=== PATIENT | male | born 1960 | race Caucasian/White ===

== ENCOUNTER → 2020-10-20 12:17 | Outpatient (BNVA) | payer BC, SELFPAY | PROVIDERS: Visit Provider Nurse Practitioner Family | DX: Z85.46 Personal history of malignant neoplasm of prostate (principal); I10 Essential (primary) hypertension; Z68.41 Body mass index [BMI] 40.0-44.9, adult; E03.9 Hypothyroidism, unspecified; E11.9 Type 2 diabetes mellitus without complications | CPT/HCPCS: 80053; 80061; 82043; 82306; 83036; 84153; 84439; 84443; 85025 ==

== ENCOUNTER 2020-11-08 12:53 | Outpatient (CLI) | payer BC, SELFPAY ==
[2020-11-08] MEDS: leuprolide 22.5 mg Kit IM (15:30)
--- NOTE | 2020-11-08 20:03 | ONC CON_ITS ---
Dr. Thompson New Patient Note Patient: Otto Zuleta Unit #: [id number]: 1960 Dicatated By: Rubin Thompson M.D.Date of Visit: Nov 08, 2020 Onc MED New Patient/Consult Referring Physician: Marci Arauz Chief Complaint: Prostate cancer. 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 He had presented with an elevated PSA level, maximum in the range of 9 ng/mL. His initial biopsy reportedly showed a Guillermo score 7 adenocarcinoma. He underwent robotic assisted laparoscopic prostatectomy on 02/02/2019. Pathology showed acinar adenocarcinoma, Chester score 4+5=9, which was extensively involving the prostate. There was perineural invasion identified but there was no extraprostatic extension and the margins were uninvolved. There were no lymph nodes included in the surgical specimen. Pathologic staging was pT2, pNx, but he was clinically N0 and thus stage IIIC (pT2, cN0, M0). By June 2019 his PSA had increased to 0.51 ng/mL and he was recommended to undergo ADT and radiation. His radiation was completed on 09/16/2019 to a total dose of 6840 cGy administered in 38 fractions. He then began androgen deprivation therapy with bicalutamide 50 mg daily together with Eligard 22.5 mg. His initial dose of Eligard was administered on 10/14/2019 and then continued every 3 months. As of 07/20/2020 his PSA level was less than 0.01 ng/mL. Subsequent to that treatment he had changed insurance and he was then required to change his care to [facility] providers. He has established primary care at the [facility]. His laboratory studies there on 10/20/2020 included a PSA level which remained adequately suppressed at 0.006 ng/mL. He is seen here today for further management of the prostate cancer. He has been feeling pretty good generally. He says he does not have a ton of energy, but he is doing light work. ECOG score is 1. He has good appetite. He recently has had some weight gain. He has not had fever. He sometimes feels a little warm. He does not have actual hot flashes and he has no night sweating. He has some exertional dyspnea, which has been going on for several years. He has cough associated with sinus drainage. He does not complain of chest pain. He has had intermittent loose stools since his radiation. He has no other GI complaints. Bladder function is pretty good, though he has not had complete control since the surgery and radiation. He recently developed some pain in his left little finger and he has occasional low back pain. He has no other joint or bone pain. He does not complain of headache or dizziness. He sometimes has numbness in his hands and/or feet. Past Medical History: His medical history includes anxiety, hypertension, hypothyroidism, nephrolithiasis, prostate cancer, and type II diabetes. Past Surgical History: He underwent robotic assisted laparoscopic prostatectomy on 02/02/2019. His other surgical/procedural history includes lithotripsy and Mohs surgery. Medications: Atenolol (50 mg) Tablet Oral daily, Bicalutamide (50 mg) Tablet Oral daily, Eligard (7.5 mg) Subcutaneous Take as Directed, Hyzaar (100-25 mg) Tablet Oral daily, Levoxyl (25 mcg) Tablet Oral daily, Potassium Citrate ER (10 meq ) Tablet, controlled release Oral daily Allergies: No Known Allergies. Social History: Mr. Zuleta is . He is retired. He is a non-smoker. He has just very occasional alcohol use. Family History: Father at 83 of old age . Mother with pulmonary fibrosis at age 81. She also had breast cancer. A brother has diabetes. Review Of Symptoms: Constitutional - He generally feels good. He does have some fatigue. He is able to do some light work in and around the house. His appetite is good and his weight is stable. No fever, night sweats, or hot flashes. ECOG score is 1, Eyes - No change in vision, ENMT - No hearing loss or tinnitus. He has occasional sinus congestion/drainage. No mouth sores. No sore throat or difficulty swallowing, Hematologic/Lymphatic - No abnormal bruising or bleeding, Respiratory - He has shortness of breath, more noticeable with exertion or when lying down. He has cough occasionally in association with post nasal drip. No pleuritic pain or hemoptysis, Cardiovascular - No angina pain. No palpitations, Gastrointestinal - No nausea or vomiting. No heartburn or acid reflux. He has intermittent loose stools and constipation. No blood in the stool or black stools, Genitourinary (M) - No dysuria or hematuria. No urinary frequency. No urgency or incontinence. He has stress incontinence, Musculoskeletal - He has some mild joint pain in his left pinky finger, which is new. He has occasional lower back pain, Integumentary - No skin eruption, Neurologic - No headache or dizziness. He has some neuropathy in his legs and feet. No other focal neurologic symptoms, Psychiatric - He has occasional episodes of anxiety. No depression. No insomnia. Vital Signs: Performed on Nov 08, 2020 13:51: 3, 0, 0.00 (LOW), 96 %, 58 /min (LOW), 18 /min, 129/75 mm(hg), 98.1 F (LOW), and 303.4 lbs (HIGH). Physical Examination: Constitutional - He looks good generally, Eyes - Sclerae nonicteric. Conjunctivae clear, ENMT - No lesions noted in the oral cavity, Neck - No mass or thyromegaly, Hematologic/Lymphatic - No cervical, clavicular, or axillary adenopathy, Respiratory - Lungs are clear with good air movement bilaterally, Cardiovascular - Heart rhythm is regular. There is no murmur, gallop, or rub noted, Abdomen - Moderately distended. Liver and spleen are not enlarged. There is no abdominal mass or ascites noted and there is no inguinal adenopathy, Extremities - No edema. Pedal pulses are palpable bilaterally, Integumentary - No rashes. No suspicious skin lesions noted, Neurologic - No focal neurologic deficits noted. Lab/Imaging: His laboratory studies from 10/20/2020 included CBC showing hemoglobin 13.3 g, white blood cell count 8300, and platelet count 395,000. Comprehensive metabolic profile showed normal renal function with BUN 14 and creatinine 0.8 mg/dL. The bilirubin and liver enzymes were normal. The TSH was normal at 3.01 ???IU/mL. Hemoglobin A1c was 7.3%. The PSA level was 0.006 ng/mL. Problem List: 1. Acinar adenocarcinoma of the prostate, Guillermo score 4+5 = 9. He underwent robotic assisted laparoscopic prostatectomy on 02/02/2019. His disease was stage IIIC (pT2, cN0, M0). He had biochemical recurrence with PSA 0.51 ng/mL in June 2019. 2. Hypertension. 3. Type 2 diabetes. 4. Hypothyroidism. 5. History of nephrolithiasis. Problems Addressed with this Encounter and Plan: Patient with acinar adenocarcinoma of the prostate, Chester score 4+5 = 9. He underwent robotic assisted laparoscopic prostatectomy on 02/02/2019. There was perineural invasion, but no extraprostatic extension, and the margins were free. Pathologic staging was pT2, Nx, as there were no lymph nodes in the surgical specimen. He was clinically N0, thus stage IIIC (pT2, cN0, M0). He had evidence of biochemical recurrence with PSA 0.51 ng/mL in June 2019. He underwent radiation to the pelvis/prostate bed, completed on 09/16/2019 to a total dose of 6840 cGy administered in 38 fractions. He then began androgen deprivation therapy with bicalutamide 50 mg daily in combination with Eligard 22.5 mg administered by intramuscular injection every 3 months. His most recent Eligard injection was given on 07/20/2020. His PSA level on 10/20/2020 remained adequately suppressed at 0.006 ng/mL. Thus far he has tolerated the androgen deprivation therapy with minimal side effects. He has completed 1 year of a planned 2-year course of treatment. He will continue his androgen deprivation therapy, but due to insurance requirements it will be changed to Depo-Lupron at the same dosage. He continues bicalutamide 50 mg daily. He will return for follow-up in 3 months. Signed By: Rubin Thompson M.D. <<Signature on File>>
== END 2020-11-08 12:54 | disposition home or self-care (01) ==
LOC: ONCMED 12:57
PROVIDERS: PCP Nurse Practitioner Family; Visit Provider Internal Medicine Medical Oncology
DX: C61 Malignant neoplasm of prostate (principal); Z92.3 Personal history of irradiation; Z90.79 Acquired absence of other genital organ(s); Z79.818 Long term (current) use of other agents affecting estrogen receptors and estrogen levels
CPT/HCPCS: 96372; 96402; 99205; J9217

== ENCOUNTER → 2021-02-02 08:31 | Outpatient (BNVA) | payer BC, SELFPAY | PROVIDERS: PCP Nurse Practitioner Family; Visit Provider Internal Medicine Medical Oncology | DX: C61 Malignant neoplasm of prostate (principal); E11.9 Type 2 diabetes mellitus without complications | CPT/HCPCS: 80053; 83036; 84153; 84403; 85025 ==

== ENCOUNTER 2021-02-06 14:28 | Outpatient (CLI) | payer BC, SELFPAY ==
[2021-02-06] MEDS: leuprolide 22.5 mg Kit IM (15:45)
--- NOTE | 2021-02-10 11:25 | ONC FU_ITS ---
Dr. Thompson Patient Follow-Up Note Patient: Otto Zuleta Unit #: [id number]: 1960 Dicatated By: Rubin Thompson M.D.Date of Visit:Feb 06, 2021 Onc Med Follow-up/Prog Note Chief Complaint: Prostate cancer. History of Present Illness: This is a 60-year-old man with Guillermo score 9 adenocarcinoma of the prostate, stage IIIC (pT2, cN0, M0) at initial diagnosis in 2018. He had presented with an elevated PSA level, maximum in the range of 9 ng/mL. His initial biopsy reportedly showed a Hamden score 7 adenocarcinoma. He underwent robotic assisted laparoscopic prostatectomy on 02/02/2019. Pathology showed acinar adenocarcinoma, Guillermo score 4+5=9, which was extensively involving the prostate. There was perineural invasion identified but there was no extraprostatic extension and the margins were uninvolved. There were no lymph nodes included in the surgical specimen. Pathologic staging was pT2, pNx, but he was clinically N0 and thus stage IIIC (pT2, cN0, M0). By June 2019 his PSA had increased to 0.51 ng/mL and he was recommended to undergo ADT and radiation. His radiation was completed on 09/16/2019 to a total dose of 6840 cGy administered in 38 fractions. He then began a planned 2-year course of androgen deprivation therapy with bicalutamide 50 mg daily together with Eligard 22.5 mg. His initial dose of Eligard was administered on 10/14/2019 and then continued every 3 months. As of 07/20/2020 his PSA level was less than 0.01 ng/mL. Subsequent to that treatment he had changed insurance and he was then required to change his care to [place]-based providers. He has established primary care at the [facility]. His laboratory studies there on 10/20/2020 included a PSA level which remained adequately suppressed at 0.006 ng/mL. He was seen here initially on 11/08/2020 for continuation of his androgen deprivation therapy. His other medical illnesses include hypertension, type 2 diabetes, and hypothyroidism. He has a history of nephrolithiasis. He is a non-smoker. INTERIM HISTORY: He has been feeling pretty good generally, though he does complain of fatigue and lack of stamina. He has limited physical activity, but he is able to do light work. ECOG score is 1. His appetite is pretty good. His weight is down a little associated with dietary changes. He has not had fever or night sweats. He does have very mild hot flashes. He has some allergy related sinus drainage. He has some shortness of breath with activity, particularly with the hot weather. He does not complain of cough and he has not been having chest pain. He has no GI/ complaints other than some intermittent diarrhea since the radiation. He has no complaints. He has some joint pain, mainly just in the left little finger. He does not complain of headache. He has some mild orthostatic lightheadedness. He sometimes has numbness in his hands and feet. Medications: Atenolol (50 mg) Tablet Oral daily, Bicalutamide (50 mg) Tablet Oral daily, Eligard (7.5 mg) Subcutaneous Take as Directed, Hyzaar (100-25 mg) Tablet Oral daily, Levoxyl (25 mcg) Tablet Oral daily, Potassium Citrate ER (10 meq ) Tablet, controlled release Oral daily Allergies: No Known Allergies. Vital Signs: Weight is 291 pounds. Blood pressure 129/70, pulse 62, respirations 18, temp 97.5 degrees, oxygen saturation 96%. Physical Examination: Constitutional - He looks good generally, Eyes - Sclerae nonicteric. Conjunctivae clear, ENMT - No lesions noted in the oral cavity, Hematologic/Lymphatic - No cervical, clavicular, or axillary adenopathy, Respiratory - Lungs are clear with good air movement bilaterally, Cardiovascular - Heart rhythm is regular. There is no murmur, gallop, or rub noted, Abdomen - Mildly distended. Liver and spleen are not enlarged. There is no abdominal mass or ascites noted and there is no inguinal adenopathy, Extremities - Slight edema, Neurologic - No focal neurologic deficits noted. Lab/Imaging: Test performed on Feb 02, 2021 08:31 Testosterone 47.0 ng/dL Glucose 102 mg/dL BUN 18 mg/dL Creatinine 0.7 mg/dL Sodium 138 mmol/L Potassium 4.6 mmol/L Chloride 98 mmol/L CO2 27 mmol/L Calcium 8.9 mg/dL Protein, Total 6.4 g/dL Albumin 4.0 g/dL Globulin 2.4 g/dL Bilirubin, Total 0.6 mg/dL Alkaline Phosphatase 86 IU/L AST (SGOT) 23 IU/L ALT (SGPT) 26 IU/L Hemoglobin A1C 6.3 % WBC 8.1 10^9/L RBC 4.39 10^12/L HGB 12.5 g/dL HCT 38.4 % MCV 87.5 fl MCH 28.5 pg MCHC 32.6 g/dL RDW 14.6 % Platelet Count 338 10^9/L MPV 7.8 fL Neutrophils (Gran) 6.3 10^9/L Lymphocytes 1.2 10^9/L Monocytes 0.6 10^9/L Manual Lymphocytes 15.3 % Manual Monocytes 6.9 % PSA 0.006 ng/mL Problem List: 1. Acinar adenocarcinoma of the prostate, Hamden score 4+5 = 9. He underwent robotic assisted laparoscopic prostatectomy on 02/02/2019. His disease was stage IIIC (pT2, cN0, M0). He had biochemical recurrence with PSA 0.51 ng/mL in June 2019. 2. Hypertension. 3. Type 2 diabetes. 4. Hypothyroidism. 5. History of nephrolithiasis. Problems Addressed with this Encounter and Plan: Patient with acinar adenocarcinoma of the prostate, Guillermo score 4+5 = 9. He underwent robotic assisted laparoscopic prostatectomy on 02/02/2019. There was perineural invasion, but no extraprostatic extension, and the margins were free. Pathologic staging was pT2, Nx, as there were no lymph nodes in the surgical specimen. He was clinically N0, thus stage IIIC (pT2, cN0, M0). He had evidence of biochemical recurrence with PSA 0.51 ng/mL in June 2019. He underwent radiation to the pelvis/prostate bed, completed on 09/16/2019 to a total dose of 6840 cGy administered in 38 fractions. He then began androgen deprivation therapy with bicalutamide 50 mg daily in combination with Eligard 22.5 mg administered by intramuscular injection every 3 months. His PSA level has remained adequately suppressed, currently at 0.006 ng/mL. He does report having significant fatigue and lack of stamina, but overall he continues to tolerate the androgen deprivation therapy with acceptable side effects. He is now in his 2nd year of treatment. He will continue his androgen deprivation therapy with Depo-Lupron 22.5 mg by intramuscular injection and he continues bicalutamide 50 mg daily. He will return for follow-up in 3 months. Signed By: Rubin Thompson M.D. <<Signature on File>>
== END 2021-02-06 14:29 | disposition home or self-care (01) ==
PROVIDERS: PCP Nurse Practitioner Family; Visit Provider Internal Medicine Medical Oncology
DX: C61 Malignant neoplasm of prostate (principal); R97.20 Elevated prostate specific antigen [PSA]; I10 Essential (primary) hypertension; E11.9 Type 2 diabetes mellitus without complications; E03.9 Hypothyroidism, unspecified; N20.0 Calculus of kidney; Z79.899 Other long term (current) drug therapy; Z79.818 Long term (current) use of other agents affecting estrogen receptors and estrogen levels
CPT/HCPCS: 96402; 99214; J9217

== ENCOUNTER → 2021-05-08 09:33 | Outpatient (BNVA) | payer BC, SELFPAY | PROVIDERS: PCP Nurse Practitioner Family; Visit Provider Nurse Practitioner Family | DX: E11.9 Type 2 diabetes mellitus without complications (principal); C61 Malignant neoplasm of prostate; I10 Essential (primary) hypertension; F33.0 Major depressive disorder, recurrent, mild; E03.9 Hypothyroidism, unspecified; Z85.46 Personal history of malignant neoplasm of prostate; Z68.41 Body mass index [BMI] 40.0-44.9, adult | CPT/HCPCS: 80053; 82043; 83036; 84153; 84403; 85025 ==

== ENCOUNTER 2021-05-10 16:13 | Outpatient (CLI) | payer BC, SELFPAY ==
[2021-05-10] MEDS: leuprolide 22.5 mg Kit IM (16:52)
--- NOTE | 2021-05-13 14:09 | ONC FU_ITS ---
Dr. Thompson Patient Follow-Up Note Patient: Otto Zuleta Unit #: [id number]: 1960 Dicatated By: Rubin Thompson M.D.Date of Visit:May 10, 2021 Onc Med Follow-up/Prog Note Chief Complaint: Prostate cancer. History of Present Illness: This is a 60-year-old man with Guillermo score 9 adenocarcinoma of the prostate, stage IIIC (pT2, cN0, M0) at initial diagnosis in 2018. He had presented with an elevated PSA level, maximum in the range of 9 ng/mL. His initial biopsy reportedly showed a Valliant score 7 adenocarcinoma. He underwent robotic assisted laparoscopic prostatectomy on 02/02/2019. Pathology showed acinar adenocarcinoma, Guillermo score 4+5=9, which was extensively involving the prostate. There was perineural invasion identified but there was no extraprostatic extension and the margins were uninvolved. There were no lymph nodes included in the surgical specimen. Pathologic staging was pT2, pNx, but he was clinically N0 and thus stage IIIC (pT2, cN0, M0). By June 2019 his PSA had increased to 0.51 ng/mL and he was recommended to undergo ADT and radiation. His radiation was completed on 09/16/2019 to a total dose of 6840 cGy administered in 38 fractions. He then began a planned 2-year course of androgen deprivation therapy with bicalutamide 50 mg daily together with Eligard 22.5 mg. His initial dose of Eligard was administered on 10/14/2019 and then continued every 3 months. As of 07/20/2020 his PSA level was less than 0.01 ng/mL. Subsequent to that treatment he had changed insurance and he was then required to change his care to [place]-based providers. He established primary care at the [facility]. His laboratory studies there on 10/20/2020 included a PSA level which remained adequately suppressed at 0.006 ng/mL. He was seen here initially on 11/08/2020, and he continued his androgen deprivation therapy with Eligard 22.5 mg by intramuscular injection every 3 months together with bicalutamide 50 mg daily. His other medical illnesses include hypertension, type 2 diabetes, and hypothyroidism. He has a history of nephrolithiasis. He is a non-smoker. INTERIM HISTORY: He has seen for a scheduled follow-up visit. He says he is feeling about the same. He has some fatigue, which has been an ongoing problem for years. He says he is trying to be more active. His ECOG score is 1. He has good appetite. He has not had fever or night sweats. He does have some hot flashes, but not many. He has no shortness of breath, cough, or chest pain. He occasionally has a little heartburn. He reports having 2 or 3 days of irritable bowel syndrome about every 2 weeks or so. He has no complaints. He has no significant joint or bone pain. He does not complain of headache or dizziness. He has no focal neurologic symptoms. Medications: Atenolol (50 mg) Tablet Oral daily, Bicalutamide (50 mg) Tablet Oral daily, Eligard (7.5 mg) Subcutaneous Take as Directed, Hyzaar (100-25 mg) Tablet Oral daily, Levoxyl (25 mcg) Tablet Oral daily, Potassium Citrate ER (10 meq ) Tablet, controlled release Oral daily Allergies: No Known Allergies. Vital Signs: Performed on May 10, 2021 16:28 Weight - 290.6 lbs (LOW) BSA - 0.00 sq.m BMI - 0.00 Temperature - 98.1 F (LOW) Pulse - 64 /min Respiration - 18 /min BP - 127/77 mm(hg) O2 Sat - 95 % (LOW) Pain - 0 Fatigue - 6 Physical Examination: Constitutional - He looks pretty good generally, Eyes - Sclerae nonicteric. Conjunctivae clear, ENMT - No lesions noted in the oral cavity, Hematologic/Lymphatic - No cervical, clavicular, or axillary adenopathy, Respiratory - Lungs are clear with good air movement bilaterally, Cardiovascular - Heart rhythm is regular. There is no murmur, gallop, or rub noted, Abdomen - Mildly distended. Liver and spleen are not enlarged. There is no abdominal mass or ascites noted and there is no inguinal adenopathy, Extremities - Mild edema, Neurologic - No focal neurologic deficits noted. Lab/Imaging: CBC shows hemoglobin 13.1 g, white blood cell count 9000, and platelet count 369,000. Comprehensive metabolic profile is unremarkable. The PSA level is stable at 0.006 ng/mL. Problem List: 1. Acinar adenocarcinoma of the prostate, Guillermo score 4+5 = 9. He underwent robotic assisted laparoscopic prostatectomy on 02/02/2019. His disease was stage IIIC (pT2, cN0, M0). He had biochemical recurrence with PSA 0.51 ng/mL in June 2019. 2. Hypertension. 3. Type 2 diabetes. 4. Hypothyroidism. 5. History of nephrolithiasis. Problems Addressed with this Encounter and Plan: Patient with acinar adenocarcinoma of the prostate, Valliant score 4+5 = 9. He underwent robotic assisted laparoscopic prostatectomy on 02/02/2019. There was perineural invasion, but no extraprostatic extension, and the margins were free. Pathologic staging was pT2, Nx, as there were no lymph nodes in the surgical specimen. He was clinically N0, thus stage IIIC (pT2, cN0, M0). He had evidence of biochemical recurrence with PSA 0.51 ng/mL in June 2019. He underwent radiation to the pelvis/prostate bed, completed on 09/16/2019 to a total dose of 6840 cGy administered in 38 fractions. He then began androgen deprivation therapy with bicalutamide 50 mg daily in combination with Eligard 22.5 mg administered by intramuscular injection every 3 months. His PSA level has remained adequately suppressed and stable at 0.006 ng/mL. During follow-up he has had ongoing complaints of fatigue, but overall he has been tolerating the androgen deprivation therapy with acceptable side effects . He is in his 2nd year of treatment. He will continue his androgen deprivation therapy with Depo-Lupron 22.5 mg by intramuscular injection and he continues bicalutamide 50 mg daily. He will return for follow-up in 3 months. Signed By: Rubin Thompson M.D. <<Signature on File>>
== END 2021-05-10 16:14 | disposition home or self-care (01) ==
PROVIDERS: PCP Nurse Practitioner Family; Visit Provider Internal Medicine Medical Oncology
DX: C61 Malignant neoplasm of prostate (principal); R97.20 Elevated prostate specific antigen [PSA]; I10 Essential (primary) hypertension; E11.9 Type 2 diabetes mellitus without complications; E03.9 Hypothyroidism, unspecified; Z87.442 Personal history of urinary calculi; Z79.890 Hormone replacement therapy
CPT/HCPCS: 96402; 99215; J9217

== ENCOUNTER → 2021-08-03 14:07 | Outpatient (BNVA) | payer BC, SELFPAY | PROVIDERS: PCP Nurse Practitioner Family; Visit Provider Internal Medicine Medical Oncology | DX: E11.9 Type 2 diabetes mellitus without complications (principal); Z85.46 Personal history of malignant neoplasm of prostate | CPT/HCPCS: 80053; 83036; 84153; 84403; 85025 ==

== ENCOUNTER 2021-08-08 14:31 | Outpatient (CLI) | payer BC, SELFPAY ==
[2021-08-08] MEDS: leuprolide 22.5 mg Kit IM (15:22)
--- NOTE | 2021-08-09 07:11 | ONC FU_ITS ---
Dr. Thompson Patient Follow-Up Note Patient: Otto Zuleta Unit #: [id number]: 1960 Dicatated By: Rubin Thompson M.D.Date of Visit:Aug 08, 2021 Onc Med Follow-up/Prog Note Chief Complaint: Prostate cancer. 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 He had presented with an elevated PSA level, maximum in the range of 9 ng/mL. His initial biopsy reportedly showed a [place] score 7 adenocarcinoma. He underwent robotic assisted laparoscopic prostatectomy on 02/02/2019. Pathology showed acinar adenocarcinoma, Guillermo score 4+5=9, which was extensively involving the prostate. There was perineural invasion identified but there was no extraprostatic extension and the margins were uninvolved. There were no lymph nodes included in the surgical specimen. Pathologic staging was pT2, pNx, but he was clinically N0 and thus stage IIIC (pT2, cN0, M0). By June 2019 his PSA had increased to 0.51 ng/mL and he was recommended to undergo ADT and radiation. His radiation was completed on 09/16/2019 to a total dose of 6840 cGy administered in 38 fractions. He then began a planned 2-year course of androgen deprivation therapy with bicalutamide 50 mg daily together with Eligard 22.5 mg. His initial dose of Eligard was administered on 10/14/2019 and then continued every 3 months. As of 07/20/2020 his PSA level was less than 0.01 ng/mL. Subsequent to that treatment he had changed insurance and he was then required to change his care to [place]-based providers. He established primary care at the [facility]. His laboratory studies there on 10/20/2020 included a PSA level which remained adequately suppressed at 0.006 ng/mL. He was seen here initially on 11/08/2020, and he continued his androgen deprivation therapy with Eligard 22.5 mg by intramuscular injection every 3 months together with bicalutamide 50 mg daily. His other medical illnesses include hypertension, type 2 diabetes, and hypothyroidism. He has a history of nephrolithiasis. He is a non-smoker. INTERIM HISTORY: He has seen for a scheduled follow-up visit. He has been feeling pretty good generally. His energy is about the same. ECOG score is 1. He has good appetite. His blood sugars recently have been under better control, as his Metformin dosage was increased to twice daily. He has not had fever or night sweats. He has had only a couple of hot flashes. He has not had sore mouth or throat. He does not complain of cough. His breathing is pretty good. He has not had any chest pain. He has no GI/ complaints other than his bowels tend to be a little iffy , and he does have occasional diarrhea. He has been having a little more joint pain, but it is still tolerable. He occasionally has a slight headache. He does not complain of dizziness. He has a little bit of numbness in his hands. Medications: Atenolol (50 mg) Tablet Oral daily, Bicalutamide (50 mg) Tablet Oral daily, Eligard (7.5 mg) Subcutaneous Take as Directed, Hyzaar (100-25 mg) Tablet Oral daily, Levoxyl (25 mcg) Tablet Oral daily, metFORMIN HCl 1 Tablet (of 1000 mg) Oral b.i.d., Potassium Citrate ER (10 meq ) Tablet, controlled release Oral daily Allergies: No Known Allergies. Vital Signs: Performed on Aug 08, 2021 15:09 Height - 70 in BSA - 0.00 sq.m BMI - 0.00 Performed on Aug 08, 2021 15:07 Weight - 293.8 lbs (HIGH) BSA - sq.m BMI - 0.00 (LOW) Temperature - 97.5 F (LOW) Pulse - 68 /min Respiration - 18 /min BP - 133/78 mm(hg) O2 Sat - 94 % (LOW) Pain - 0 Fatigue - 8 Physical Examination: Constitutional - He looks pretty good generally, Eyes - Sclerae nonicteric. Conjunctivae clear, ENMT - No lesions noted in the oral cavity, Hematologic/Lymphatic - No cervical, clavicular, or axillary adenopathy, Respiratory - Lungs are clear with good air movement bilaterally, Cardiovascular - Heart rhythm is regular. There is no murmur, gallop, or rub noted, Abdomen - Mildly distended. Liver and spleen are not enlarged. There is no abdominal mass or ascites noted and there is no inguinal adenopathy, Extremities - No edema, Neurologic - No focal neurologic deficits noted. Lab/Imaging: CBC shows hemoglobin 13.5 g, white blood cell count 8300, and platelet count 387,000. Comprehensive metabolic profile shows normal renal function with BUN 18 and creatinine 0.8 mg/dL. Bilirubin and liver enzymes are normal. PSA level is <0.014 ng/mL. The total testosterone is stable in castrate range at 41.8 ng/dL. Problem List: 1. Acinar adenocarcinoma of the prostate, [place] score 4+5 = 9. He underwent robotic assisted laparoscopic prostatectomy on 02/02/2019. His disease was stage IIIC (pT2, cN0, M0). He had biochemical recurrence with PSA 0.51 ng/mL in June 2019. 2. Hypertension. 3. Type 2 diabetes. 4. Hypothyroidism. 5. History of nephrolithiasis. Problems Addressed with this Encounter and Plan: Patient with acinar adenocarcinoma of the prostate, Guillermo score 4+5 = 9. He underwent robotic assisted laparoscopic prostatectomy on 02/02/2019. There was perineural invasion, but no extraprostatic extension, and the margins were free. Pathologic staging was pT2, Nx, as there were no lymph nodes in the surgical specimen. He was clinically N0, thus stage IIIC (pT2, cN0, M0). He had evidence of biochemical recurrence with PSA 0.51 ng/mL in June 2019. He underwent radiation to the pelvis/prostate bed, completed on 09/16/2019 to a total dose of 6840 cGy administered in 38 fractions. He then began androgen deprivation therapy with bicalutamide 50 mg daily in combination with Eligard 22.5 mg administered by intramuscular injection every 3 months. His PSA level has remained adequately suppressed and stable at 0.006 ng/mL. During follow-up he has had some fatigue, but overall he has been tolerating the androgen deprivation therapy very well, and his PSA level has remained suppressed. He is now completing his 2nd year of treatment. As such, he receives his final Depo-Lupron injection today. He will continue bicalutamide 50 mg daily. I will see him for a follow-up visit in 3 months. Signed By: Rubin Thompson M.D. <<Signature on File>>
== END 2021-08-08 14:32 | disposition home or self-care (01) ==
PROVIDERS: PCP Nurse Practitioner Family; Visit Provider Internal Medicine Medical Oncology
DX: C61 Malignant neoplasm of prostate (principal); Z90.79 Acquired absence of other genital organ(s); I10 Essential (primary) hypertension; Z79.818 Long term (current) use of other agents affecting estrogen receptors and estrogen levels; E11.9 Type 2 diabetes mellitus without complications; E03.9 Hypothyroidism, unspecified; Z87.442 Personal history of urinary calculi
CPT/HCPCS: 96372; 96402; 99215; J9217

== ENCOUNTER → 2021-11-10 08:42 | Outpatient (BNVA) | payer OTHER, SELFPAY | PROVIDERS: PCP Nurse Practitioner Family; Visit Provider Internal Medicine Medical Oncology | DX: C61 Malignant neoplasm of prostate (principal) | CPT/HCPCS: 80053; 83036; 84153; 85025 ==

== ENCOUNTER 2021-11-13 13:26 | Outpatient (CLI) | payer OTHER, SELFPAY ==
[2021-11-13 14:55] LABS: Alanine Aminotransferase 27 U/L (0-41); Albumin Level 4.3 g/dL (3.5-5.2); Alkaline Phosphatase 87 IU/L (40-130); Aspartate Amino Transferase 28 U/L (0-40); Blood Urea Nitrogen 17 mg/dL (8-23); Calcium 10.5 mg/dL (8.5-10.5); Carbon Dioxide 28 mmol/L (22-29); Chloride 96 mmol/L (98-107); Globulin 3.1 g/dL (1.3-4.6); Glomerular Filtration Rate 85.5 mL/min (90-130); Glucose 115 mg/dL (65-115); Osmolality Calculated 286 mOsm/kg (285-295); Sodium 137 mmol/L (136-145); Testosterone Total 35.6 ng/dL (193-740); Total Bilirubin 0.6 mg/dL (0.15-1.2); Total Protein 7.4 g/dL (6.6-8.7)
[2021-11-13 14:58] LABS: Prostate Specific Antigen < 0.014 ng/mL (0-4)
[2021-11-13 14:59] LABS: Anion Gap 16.9 (5-19); Potassium 3.9 mmol/L (3.5-5.1)
--- NOTE | 2021-11-21 21:15 | ONC FU_ITS ---
[facility] Progress Note Patient: Otto Zuleta Unit #: [id number]: 1960 Dicatated By: India De La Rosa N.P.Date of Visit:Nov 13, 2021 Onc MED Follow-up/Prog Note Chief Complaint: Prostate cancer. History of Present Illness: This is a 61 year-old man with Guillermo score 9 adenocarcinoma of the prostate, stage IIIC (pT2, cN0, M0) at initial diagnosis in 2018. He had presented with an elevated PSA level, maximum in the range of 9 ng/mL. His initial biopsy reportedly showed a [place] score 7 adenocarcinoma. He underwent robotic assisted laparoscopic prostatectomy on 02/02/2019. Pathology showed acinar adenocarcinoma, Guillermo score 4+5=9, which was extensively involving the prostate. There was perineural invasion identified but there was no extraprostatic extension and the margins were uninvolved. There were no lymph nodes included in the surgical specimen. Pathologic staging was pT2, pNx, but he was clinically N0 and thus stage IIIC (pT2, cN0, M0). By June 2019 his PSA had increased to 0.51 ng/mL and he was recommended to undergo ADT and radiation. His radiation was completed on 09/16/2019 to a total dose of 6840 cGy administered in 38 fractions. He then began a planned 2-year course of androgen deprivation therapy with bicalutamide 50 mg daily together with Eligard 22.5 mg. His initial dose of Eligard was administered on 10/14/2019 and then continued every 3 months. As of 07/20/2020 his PSA level was less than 0.01 ng/mL. Subsequent to that treatment he had changed insurance and he was then required to change his care to [place]-based providers. He established primary care at [facility]. His laboratory studies there on 10/20/2020 included a PSA level which remained adequately suppressed at 0.006 ng/mL. He was seen here initially on 11/08/2020, and he continued his androgen deprivation therapy with Eligard 22.5 mg by intramuscular injection every 3 months together with bicalutamide 50 mg daily. His other medical illnesses include hypertension, type 2 diabetes, and hypothyroidism. He has a history of nephrolithiasis. He is a non-smoker. INTERIM HISTORY: Patient presents today for follow-up visit. He continues to have fatigue but is able to carry out activities. His ECOG is 1. His appetite is good. No fever, chills, night sweats. He denies sinus drainage or mouth sores. No shortness of breath, cough, chest pain. No GI or problems. No joint pain or muscle weakness. He denies headaches or dizziness. Review Of Symptoms: see above Past Medical History: Anxiety Hypertension Hypothyroidism Nephrolithiasis Type II diabetes Past Surgical History: Lithotripsy Mohs surgery Robotic assisted laparoscopic prostatectomy in 2019 Allergies: No Known Allergies. Medications: Atenolol (50 mg) Tablet Oral daily Bicalutamide (50 mg) Tablet Oral daily Hyzaar (100-25 mg) Tablet Oral daily Levoxyl (25 mcg) Tablet Oral daily metFORMIN HCl 1 Tablet (of 1000 mg) Oral b.i.d. Potassium Citrate ER (10 meq ) Tablet, controlled release Oral daily Family History: Mr. Zuleta's mother is : breast cancer, and Pulmonary Fibrosis. Father at 83 of old age . Mother with pulmonary fibrosis at age 81. She also had breast cancer. A brother has diabetes. Social History: Mr. Zuleta is . Mr. Zuleta has never smoked. Mr. Zuleta reports contact with the following hazardous materials: asbestos. He is a non-smoker. Has just very occasional alcohol use. Physical Examination: Performed on Nov 13, 2021 14:12: Height - 70.00 in, Weight - 289.6 lbs (LOW), BSA - 2.44 sq.m, BMI - 41.55 (HIGH), Temperature - 98.2 F (LOW), Pulse - 67 /min, Respiration - 16 /min, BP - 119/74 mm(hg), O2 Sat - 95 % (LOW), Pain - 0, and Fatigue - 7. Performance Status: 1 - No physically strenuous activity, but ambulatory and able to carry out light or sedentary work (e.g. office work, light house work). (ECOG) Constitutional Alert, cooperative, oriented. Mood and affect appropriate. Appears close to chronological age. Well nourished. Well developed. Head Normocephalic; no scars. Respiratory Lungs are clear to auscultation without rhonchi or wheezing. Cardiovascular Regular rate and rhythm of heart without murmurs, gallops or rubs. Abdomen Non-tender, non-distended, no masses, ascites or hepatosplenomegaly. Good bowel sounds. No guarding or rebound tenderness. Musculoskeletal No tenderness or swelling, normal range of motion without obvious weakness. Psychiatric Alert and oriented times three. Coherent speech. Verbalizes understanding of our discussions today. Laboratory: Test performed on Nov 13, 2021 14:19 Sodium 137 mmol/L Testosterone, Total 35.6 ng/dL Potassium 3.9 mmol/L Chloride 96 mmol/L CO2 28 mmol/L Anion Gap 16.9 BUN 17 mg/dL Creatinine 0.9 mg/dL Cr Clearance (Est) 158.1200 mL/min eGFR 85.5 mL/min Glucose 115 mg/dL Osmolality - Calculated 286 mOsm/kg Calcium 10.5 mg/dL Protein, Total 7.4 g/dL Albumin 4.3 g/dL Globulin 3.1 g/dL Bilirubin, Total 0.6 mg/dL ALT (SGPT) 27 U/L AST (SGOT) 28 U/L Alkaline Phosphatase 87 IU/L PSA < 0.014 ng/mL Impression: 1. Acinar adenocarcinoma of the prostate, [place] score 4+5 = 9. He underwent robotic assisted laparoscopic prostatectomy on 02/02/2019. His disease was stage IIIC (pT2, cN0, M0). He had biochemical recurrence with PSA 0.51 ng/mL in June 2019. 2. Hypertension. 3. Type 2 diabetes. 4. Hypothyroidism. 5. History of nephrolithiasis. Plan: Patient with acinar adenocarcinoma of the prostate, [place] score 4+5 = 9. He underwent robotic assisted laparoscopic prostatectomy on 02/02/2019. There was perineural invasion, but no extraprostatic extension, and the margins were free. Pathologic staging was pT2, Nx, as there were no lymph nodes in the surgical specimen. He was clinically N0, thus stage IIIC (pT2, cN0, M0). He had evidence of biochemical recurrence with PSA 0.51 ng/mL in June 2019. He underwent radiation to the pelvis/prostate bed, completed on 09/16/2019 to a total dose of 6840 cGy administered in 38 fractions. He then began androgen deprivation therapy with bicalutamide 50 mg daily in combination with Eligard 22.5 mg administered by intramuscular injection every 3 months. His PSA level has remained adequately suppressed and stable at 0.006 ng/mL. Patient presents today for follow-up. His PSA level remains less than 0.014. He completed his 2 years of Depo-Lupron in July 2021. He continues his bicalutamide 50 mg daily. He will return to the clinic in 3 months with a PSA level. Signed By: India De La Rosa N.P. <<Signature on File>>
== END 2021-11-13 13:27 | disposition home or self-care (01) ==
PROVIDERS: PCP Nurse Practitioner Family; Visit Provider Nurse Practitioner Family
DX: C61 Malignant neoplasm of prostate (principal); I10 Essential (primary) hypertension; E11.9 Type 2 diabetes mellitus without complications; E03.9 Hypothyroidism, unspecified; Z87.442 Personal history of urinary calculi; Z79.818 Long term (current) use of other agents affecting estrogen receptors and estrogen levels; Z90.79 Acquired absence of other genital organ(s); Z92.3 Personal history of irradiation
CPT/HCPCS: 36415; 80053; 84153; 84403; 84439; 84443; 99214

== ENCOUNTER → 2022-03-20 08:27 | Outpatient (BNVA) | payer OTHER, SELFPAY | PROVIDERS: PCP Nurse Practitioner Family; Visit Provider Internal Medicine Medical Oncology | DX: Z85.46 Personal history of malignant neoplasm of prostate (principal) | CPT/HCPCS: 80053; 84153; 85025 ==

== ENCOUNTER → 2022-05-16 09:23 | Outpatient (BNVA) | payer OTHER, SELFPAY | PROVIDERS: PCP Nurse Practitioner Family; Visit Provider Nurse Practitioner Family | DX: E11.9 Type 2 diabetes mellitus without complications (principal); I10 Essential (primary) hypertension; Z85.46 Personal history of malignant neoplasm of prostate | CPT/HCPCS: 80053; 84153; 85025 ==

== ENCOUNTER → 2022-09-27 08:42 | Outpatient (BNVA) | payer OTHER, SELFPAY | PROVIDERS: PCP Nurse Practitioner Family; Visit Provider Internal Medicine Medical Oncology | DX: C61 Malignant neoplasm of prostate (principal) | CPT/HCPCS: 84153 ==

== ENCOUNTER → 2022-12-10 14:37 | Outpatient (BNVA) | payer OTHER, SELFPAY | PROVIDERS: PCP Nurse Practitioner Family; Visit Provider Nurse Practitioner Family | DX: I10 Essential (primary) hypertension (principal); E11.9 Type 2 diabetes mellitus without complications | CPT/HCPCS: 80053; 80061; 82043; 83036; 84443; 85025 ==

== ENCOUNTER 2022-12-13 12:47 | Oncology outpatient (recurring) (ONCR) | payer OTHER, SELFPAY ==
[2022-12-13 13:57] LABS: Alanine Aminotransferase 23 U/L (0-41); Albumin Level 3.9 g/dL (3.5-5.2); Alkaline Phosphatase 74 U/L (40-130); Anion Gap 15.4 (5-19); Aspartate Amino Transferase 22 U/L (0-40); Blood Urea Nitrogen 18 mg/dL (8-23); Calcium 9.5 mg/dL (8.5-10.5); Carbon Dioxide 27 mmol/L (22-29); Chloride 96 mmol/L (98-107); Chol HDL Ratio 2.75 mg/dL (1.0-5.00); Cholesterol 157 mg/dL (0-200); Globulin 3.6 g/dL (1.3-4.6); Glomerular Filtration Rate 97.6 mL/min (90-130); Glucose 86 mg/dL (65-115); HDL Cholesterol 57 mg/dL (60-100); LDL Cholesterol Calculated 79 mg/dL (50-129); LDL HDL Ratio 1.39 RATIO (0.00-3.22); Osmolality Calculated 279 mOsm/kg (285-295); Potassium 4.4 mmol/L (3.5-5.1); Prostate Specific Antigen < 0.014 ng/mL (0-4); Sodium 134 mmol/L (136-145); Thyroid Stimulating Hormone 3.46 uIU/mL (0.27-4.20); Total Bilirubin 0.7 mg/dL (0.15-1.2); Total Protein 7.5 g/dL (6.6-8.7); Triglycerides 104 mg/dL (0-150)
== END 2022-12-16 23:59 | disposition home or self-care (01) ==
PROVIDERS: PCP Nurse Practitioner Family; Visit Provider Internal Medicine Medical Oncology
DX: C61 Malignant neoplasm of prostate (principal); I10 Essential (primary) hypertension; E03.9 Hypothyroidism, unspecified
CPT/HCPCS: 36415; 80053; 80061; 84153; 84443